=== PATIENT | male | born 1995 ===

== ENCOUNTER 2017-10-03 00:39 | Emergency (ER) | payer OTHER ==
[~2017-10-03] VITALS: Ht 170.2 cm; Wt 60.0 kg
[2017-10-03 00:47] VITALS: BP 120/67; PULSE 85; RESP 18; TEMP 98.5; O2SAT 98
[2017-10-03] MEDS ORDERED: TETANUS/DIPHTHERIA TOXOID ADULT 0.5 ML VIAL IM ONE (01:15)
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
[2017-10-03] MEDS ORDERED: IBUP1TAB7 PO (02:11)
[2017-10-03] MEDS ORDERED: CEPH-460 PO (02:11)
[2017-10-03] MEDS ORDERED: IBUPROFEN 800 MG TAB PO ONE (02:15)
== END 2017-10-03 02:33 | disposition home or self-care (01) ==
LOC: NEPD 00:39
DX: S61.422A Laceration with foreign body of left hand, initial encounter (principal); V49.59XA Passenger injured in collision with other motor vehicles in traffic accident, initial encounter; Z72.0 Tobacco use; Z23 Encounter for immunization
CPT/HCPCS: 73130; 90471; 90714; 96372